=== PATIENT | female | born 2000 | race Hispanic/Latino ===

== ENCOUNTER 2021-07-28 04:41 | Emergency (ER) | payer OTHER ==
[~2021-07-28] VITALS: Ht 157.5 cm; Wt 79.8 kg
[2021-07-28 05:00] VITALS: BP 126/72
== END 2021-07-28 07:51 | disposition home or self-care (01) ==
LOC: EDH 04:41
DX: F43.9 Reaction to severe stress, unspecified (principal); F31.9 Bipolar disorder, unspecified; F41.9 Anxiety disorder, unspecified
CPT/HCPCS: 99281